=== PATIENT | male | born 1955 | race Caucasian/White ===

== ENCOUNTER 2016-10-12 16:10 | Emergency (ER) | payer BC, OTHER ==
[2016-10-12 16:37] VITALS: TEMP 97.7
--- NOTE | 2016-10-12 18:13 | EDPHY ---
H & P Time Seen by Provider: 10/12/16 18:13 HPI/ROS: CHIEF COMPLAINT: Lightheaded on standing HISTORY OF PRESENT ILLNESS: This 61-year-old man had at visit to the emergency department in [place] on October 03 for symptoms of lower GI bleed and hematocrit decreasing from 42-37. He was discharged from the ER and presents to the emergency department today feeling increasingly lightheaded on standing, with fatigue blurry vision and generalized weakness. Not associated with actual syncope. No chest pain or shortness of breath. He just feels very very weak and exhausted. REVIEW OF SYSTEMS: Eye: Having some blurry vision with his symptoms. ENT: no sore throat Cardiac: no chest pain or syncope Pulmonary: no cough or SOB Abdomen: no vomiting, diarrhea, abdominal pain. No black or bloody stools. Musculoskeletal: no back pain or neck pain or neck stiffness, but some diffuse myalgias. Skin: no rash Neuro: no headache Constitutional: no fever : no urinary symptoms. No change in color of urine. A comprehensive 10 point review of systems is otherwise negative aside from elements mentioned in the history of present illness. PAST MEDICAL HISTORY: Hydrocortisone for adrenal problem, right total hip arthroplasty August 16, right ACL September 15. Restless leg syndrome, depression on gabapentin and Lexapro. Social history: Nonsmoker, lives mostly in [place]. Has a primary care physician in [place]. General Appearance: Alert and conversant, cooperative. Eyes: No scleral icterus. ENT, Mouth: Normal mucous membranes. Respiratory: Normal respiratory effort, breath sounds equal, lungs are clear to auscultation. Cardiovascular: Regular rate and rhythm. Gastrointestinal: Abdomen is soft and non tender. Rectal exam shows dark stool sent to lab for Hemoccult. Neurological: Alert and oriented x3. Normally conversant. Face symmetric, normal movement and sensation in all extremities. Not tremulous. Skin: Warm and dry, no rashes. Musculoskeletal: No peripheral edema and no joint swelling. Psychiatric: Not agitated. Emergency Department course/MDM: EKG, labs to include CBC and troponin and D-dimer. CT angio chest ordered because of weakness and lightheadedness and elevated D- dimer. Results discussed with the patient. Differential is broad but I do not think at this point there is evidence he is an acute emergent medical condition. Possible viral syndrome. Possible moderately volume depleted. Smoking Status: Never smoked Constitutional: Initial Vital Signs Temperature (C) 36.5 C 10/12/16 16:34 Heart Rate 77 10/12/16 16:34 Respiratory Rate 14 10/12/16 16:34 Blood Pressure 156/85 H 10/12/16 16:34 O2 Sat (%) 94 10/12/16 16:34 O2 Delivery Mode Room Air Allergies/Adverse Reactions: versed Allergy (Uncoded 10/12/16 16:31) Medical Decision Making - Diagnostics EKG Interpretation: 12-lead EKG interpreted by me; official reading is in trace master. My interpretation is sinus rhythm, rate 69, normal intervals and no ischemic changes. Imaging: Negative CT angiography of the chest per Dr. Jiménez at 8:50 p.m.. Differential Diagnosis: Differential considered including but not limited to pulmonary embolism, anemia , recurrent GI bleed, metabolic, acute coronary syndrome, dysrhythmia. - Data Points Laboratory Results: Laboratory Results 10/12/16 18:22 10/12/16 18:22 10/12/16 10/12/16 18:40 18:22 WBC 7.47 10^3/uL (3.80-9.50) RBC 4.30 L 10^6/uL (4.40-6.38) Hgb 12.6 L g/dL (13.7-17.5) Hct 37.9 L % (40.0-51.0) MCV 88.1 fL (81.5-99.8) MCH 29.3 pg (27.9-34.1) MCHC 33.2 g/dL (32.4-36.7) RDW 14.0 % (11.5-15.2) Plt Count 400 10^3/uL (150-400) MPV 8.9 fL (8.7-11.7) Neut % (Auto) 69.1 % (39.3-74.2) Lymph % (Auto) 21.0 % (15.0-45.0) [place] % (Auto) 7.0 % (4.5-13.0) Eos % (Auto) 1.7 % (0.6-7.6) Baso % (Auto) 0.4 % (0.3-1.7) Nucleat RBC Rel Count 0.0 % (0.0-0.2) Absolute Neuts (auto) 5.16 10^3/uL (1.70-6.50) Absolute Lymphs (auto) 1.57 10^3/uL (1.00-3.00) Absolute Monos (auto) 0.52 10^3/uL (0.30-0.80) Absolute Eos (auto) 0.13 10^3/uL (0.03-0.40) Absolute Basos (auto) 0.03 10^3/uL (0.02-0.10) Absolute Nucleated RBC 0.00 10^3/uL (0-0.01) Immature Gran % 0.8 % (0.0-1.1) Immature Gran # 0.06 10^3/uL (0.00-0.10) D-Dimer 2.63 H ug/mLFEU (0.00-0.50) Sodium 141 mEq/L (134-144) Potassium 4.2 mEq/L (3.5-5.2) Chloride 105 mEq/L (97-110) Carbon Dioxide 26 mEq/l (22-31) Anion Gap 10 mEq/L (8-16) BUN 15 mg/dL (7-23) Creatinine 0.9 mg/dL (0.7-1.3) Estimated GFR > 60 Glucose 97 mg/dL (70-100) Calcium 8.7 mg/dL (8.5-10.4) Troponin I < 0.012 ng/mL (0-0.034) Stool Occult Bld Scrn NEGATIVE (NEGATIVE) Departure - Departure Disposition: Home, Routine, Self-Care Clinical Impression: Lightheaded Condition: Good Instructions: Near Syncope (ED), Lightheadedness (ED) Additional Instructions: You have a nodule on your lung on CT scan. It (the CT) needs to be repeated in 6 months to evaluate for the possibility of cancer. Referrals: IN STATE,. [Primary Care Provider] - As per Instructions (Dr. Storm your PCP in [place])
--- NOTE | 2016-10-12 18:22 | CPEKG ---
Heart Rate: 69 RR Interval: 870 P-R Interval: 168 QRSD Interval: 88 QT Interval: 420 QTC Interval: 450 P [place]: 31 QRS [place]: -4 T Wave [place]: 41 EKG Severity - NORMAL ECG - EKG Impression: SINUS RHYTHM Electronically Signed By: Ulises Rock 12-Oct-2016 18:40:33
[2016-10-12 18:29] VITALS: RESP 16
[2016-10-12 18:39] LABS: % IMMATURE GRANULYOCYTES 0.8 % (0.0-1.1); ABSOLUTE IMMATURE GRANULOCYTES 0.06 10^3/uL (0.00-0.10); ADD DIFF? NO; ADD MORPH? NO; ADD SCAN? NO; ATYPICAL LYMPHOCYTE FLAG 10 (0-99); FRAGMENT RBC FLAG 0 (0-99); HEMATOCRIT 37.9 % (40.0-51.0); HEMOGLOBIN 12.6 g/dL (13.7-17.5); LEFT SHIFT FLG 0 (0-99); LIPEMIA HEMOLYSIS FLAG 80 (0-99); MEAN CELL HEMOGLOBIN 29.3 pg (27.9-34.1); MEAN CELL HEMOGLOBIN CONCENTR. 33.2 g/dL (32.4-36.7); MEAN CELL VOLUME 88.1 fL (81.5-99.8); MEAN PLATELET VOLUME 8.9 fL (8.7-11.7); PLATELET CLUMPS FLAG 20 (0-99); PLATELET COUNT 400 10^3/uL (150-400)
[2016-10-12 18:47] LABS: ANION GAP 10 mEq/L (8-16); CALCIUM 8.7 mg/dL (8.5-10.4); CARBON DIOXIDE 26 mEq/l (22-31); CHLORIDE 105 mEq/L (97-110); CREATININE 0.9 mg/dL (0.7-1.3); GLOMERULAR FILTRATION RATE > 60; GLUCOSE 97 mg/dL (70-100); POTASSIUM 4.2 mEq/L (3.5-5.2); SODIUM 141 mEq/L (134-144)
[2016-10-12 18:59] LABS: TROPONIN I < 0.012 ng/mL (0-0.034)
[2016-10-12] MEDS ORDERED: IOPAMIDOL (ISOVUE 370) 100 ML BTL IV ONE (19:44)
--- NOTE | 2016-10-12 21:10 | CT ---
CT Angiogram Chest, With IV ContrastS HISTORY: Elevated D-dimer. Syncopal episode. TECHNIQUE: 1.25-mm helical images were obtained of the chest from the lung apices through the lung b ases. This was done postintravenous contrast, with 80 mL of Isovue-370 contrast. Multiplanar and 3D evaluation was performed at the workstation. Radiation dose reduction technique was utilized. FINDINGS Pulmonary Angiogram: The pulmonary arteries are well opacified and demonstrate no evidence for a savanna ling defect to indicate a pulmonary embolus. No evidence for an aortic aneurysm or dissection. CHEST: The heart size is within normal limits. No evidence for a pericardial effusion. No signific ant mediastinal or hilar lymphadenopathy. The lungs are clear of acute consolidation. No evidence f or a pleural effusion or pneumothorax. Minimal scarring is seen in the right middle lobe and lingula . A 6-mm pulmonary nodule is seen laterally in the right middle lobe, measuring 6.4 mm. Another sma ller 3.4-mm pulmonary nodule is seen along the minor fissure. Degenerative change is seen in the tho racic spine. IMPRESSION: No evidence for a pulmonary embolus. A 6-mm pulmonary nodule right middle lobe. Recommendation: Recommend follow-up CT in 6-12 months. Results discussed with Dr. Ulises Rock.
[2016-10-12 21:38] VITALS: BP 125/88; PULSE 75; O2SAT 92
== END 2016-10-12 21:37 | disposition home or self-care (01) ==
DX: R42 Dizziness and giddiness (principal)
CPT/HCPCS: Q9967

== ENCOUNTER 2019-01-02 05:18 | Observation (INO) | payer OTHER ==
--- NOTE | 2019-01-01 15:55 | GHP ---
[f rep st] PREOP HISTORY AND PHYSICAL DATE OF ADMISSION: 01/02/2019 HISTORY OF PRESENT ILLNESS: The patient is a 63-year-old man who presents with chronic right knee pa in. He has a history of a torn ACL and a reconstruction as well as a quadriceps tear and repair and he has had medial and lateral meniscal work. He has swelling, stiffness, pain on weightbearing, prob lems with his gait and limitations of his activities including activities of daily living, especially bad when walking down stairs. He has been using narcotics to control his pain. He has had viscosup plementation injections as well as steroid injections. They have not eliminated or significantly dick nged his symptoms. He has tried appropriate exercises. His x-rays show right knee tricompartment os teoarthritis with severe joint space narrowing medially. He has retained hardware, small button on t he lateral side of the femur and a screw and washer in the tibia. A right total knee arthroplasty is planned. PAST MEDICAL HISTORY: Remarkable for restless legs syndrome. He has had a history of a GI bleed. Pratima cabello is intolerant of aspirin and NSAID. He has had bilateral total hips, right ACL, he has had eye pro cedures mainly for retinal problems. ALLERGIES: He has an allergy to Versed causing confusion. He is intolerant of NSAIDs and aspirin. MEDICATIONS: Include gabapentin 600 mg p.o. daily and ropinirole. He also is using hydrocortisone 1 0 mg 4 times a day and albuterol inhaler. SOCIAL HISTORY: He has a history of tobacco use years ago. REVIEW OF SYMPTOMS: Positive for his GI bleed, asthma, and restless legs. PHYSICAL EXAM: GENERAL: The patient is a well-developed, well-nourished male in no apparent distres s. HEAD AND NECK: Normocephalic, atraumatic. CHEST: Clear. CARDIOVASCULAR: Regular rate and rhy thm. ABDOMEN: Soft. NEUROLOGIC: He is alert and oriented x3. EXTREMITIES: Exam of the right kndestiney e shows varus alignment about 4 degrees of flexion contracture. He has very good flexion. He has a mild pivot shift from his old ACL, he has tenderness along the medial joint line and effusion. He mackey s good strong quadriceps function. Neurovascular exam is intact. SKIN: Intact. IMPRESSION: Osteoarthritis, right knee. PLAN: Right total knee arthroplasty. Benefits and risks of surgery have been reviewed with the harman ent. He understands that the risks include infection, damage to blood vessel or nerve, failure or lo osening of components and need for revision, blood clot in the leg or lungs, bleeding and need for tr ansfusion. I have reviewed the rigorous nature of the rehabilitation. We will plan on DVT prophylax is with Lovenox. He has signed his consent form and wishes to proceed. /[id number]/MODL
[2019-01-02] MEDS ORDERED: FAMOTIDINE 20 MG TAB PO ONE (05:52)
[2019-01-02] MEDS ORDERED: ceFAZolin 2 GM/DEXTROSE 100 ML IV ONE (05:52)
[2019-01-02] MEDS ORDERED: DEXAMETHASONE 4 MG/ML VIAL IVP ONE (05:52)
[2019-01-02] MEDS ORDERED: ACETAMINOPHEN 325 MG TAB PO ONE (05:52)
[2019-01-02] MEDS ORDERED: LR 1,000 ML IV ONE (05:54)
[2019-01-02] MEDS ORDERED: POVIDONE-IODINE 20 ML in SODIUM CL IRRIG SOLUTION 500 ML IRR ONE (06:00)
[2019-01-02] MEDS ORDERED: TRANEXAMIC ACID 1,000 MG in NS 100 ML IV ONE (06:00)
[2019-01-02] MEDS ORDERED: ROPIVACAINE 0.2% 80 MG, EPINEPHrine 0.2 MG, KETOROLAC TROMETHAMINE 30 MG in SYRINGE 0 ML IU ONE (06:00)
--- NOTE | 2019-01-02 06:50 | PDANEPAE ---
ANE Past Medical History - Cardiovascular History Hx Hypertension: No Hx Arrhythmias: No Hx Chest Pain: No Hx Coronary Artery / Peripheral Vascular Disease: No Hx CHF / Valvular Disease: No Hx Palpitations: No - Pulmonary History Hx COPD: No Hx Asthma/Reactive Airway Disease: No Hx Recent Upper Respiratory Infection: No Hx Oxygen in Use at Home: No Hx Sleep Apnea: No Sleep Apnea Screening Result - Last Documented: Positive Pulmonary History Comment: EXERCISE INDUCED ASTHMA. POS PRASHANTH - NO CPAP - Neurologic History Hx Cerebrovascular Accident: No Hx Seizures: No Hx Dementia: No Neurologic History Comment: VASOVAGAL REACTION - PASSED OUT FOLLOWING DENTAL SURG - Endocrine History Hx Diabetes: No - Renal History Hx Renal Disorders: No Renal History Comment: ADRENAL CORTISOL DEFICIENCY - Liver History Hx Hepatic Disorders: No - Neurological & Psychiatric Hx Hx Neurological and Psychiatric Disorders: Yes Neurological / Psychiatric History Comment: ANXIETY - Cancer History Hx Cancer: No - Congenital Disorder History Hx Congenital Disorders: No - GI History Hx Gastrointestinal Disorders: No - Other Health History Other Health History: TAKES HYDROCORTISONE FOR ADRENAL DISEASE. FXd RIBS IN PAST - Chronic Pain History Chronic Pain: Yes (RT KNEE) - Surgical History Prior Surgeries: ISMAEL TOTAL HIP. ISMAEL SHOULDERS RTC. RT ACL/MENISCUS REPAIR ANE Review of Systems Review of Systems: - Exercise capacity METS (RN): 6 METS ANE Patient History - Allergies Allergies/Adverse Reactions: versed Allergy (Uncoded 08/08/18 14:30) "MR HERNANDEZ"SYNDROME W/HEADACHE,RASH, & ANGER - Home Medications Home Medications: Escitalopram Oxalate [Lexapro] 20 mg PO DAILY 08/08/18 [Last Taken 01/01/19 08: 00] Gabapentin [Neurontin 300 MG (*)] 600 mg PO HS 08/08/18 [Last Taken 01/01/19] Hydrocortisone [Cortef 10 mg (*)] 10 mg PO QID 08/08/18 [Last Taken 01/01/19] oxyCODONE IR [Oxycodone Ir (*)] 5 mg PO TID 08/08/18 [Last Taken 01/02/19 02:00] rOPINIRole HCL [Requip 5mg (*)] 5 mg PO DAILY18 08/08/18 [Last Taken 01/01/19 17 :00] Albuterol [Proventil Inhaler HFA (*)] 1 - 2 puffs IH Q4H PRN 12/19/18 [Last Taken 01/01/19] rOPINIRole HCL [Requip Xl] 2 mg PO DAILY 12/19/18 [Last Taken 01/02/19 02:00] - NPO status NPO Since - Liquids (Date): 01/02/19 NPO Since - Liquids (Time): 02:00 NPO Since - Solids (Date): 01/01/19 NPO Since - Solids (Time): 20:00 - Smoking Hx Smoking Status: Former smoker - Family Anes Hx Family Hx Anesthesia Complications: NEG ANE Labs/Vital Signs - Vital Signs Blood Pressure: 130/83 Heart Rate: 66 Respiratory Rate: 16 O2 Sat (%): 95 Height: 187.96 cm Weight: 86.183 kg ANE Physical Exam - Airway Neck exam: FROM Mallampati Score: Class 2 Mouth exam: normal dental/mouth exam - Pulmonary Pulmonary: clear to auscultation - Cardiovascular Cardiovascular: regular rate and rhythym - ASA Status ASA Status: II ANE Anesthesia Plan Anesthesia Plan: spinal Regional Anesthesia: single shot NB
[2019-01-02] MEDS ORDERED: PROPOFOL/EMULSION 500 MG/50 ML BOTTLE IV ONE (06:56)
[2019-01-02] MEDS ORDERED: MIDAZOLAM 2 MG/2 ML VIAL IVP ONE ×2 (06:56→07:09)
[2019-01-02] MEDS ORDERED: BUPIVACAINE/DEXTROSE 7.5MG/ML 2 ML SPINAL AMP SP ONE (06:58)
[2019-01-02] MEDS ORDERED: ceFAZolin 1 GM/5 ML SYR ONE (07:05)
--- NOTE | 2019-01-02 07:19 | PDHPUP ---
History & Physical Update H&P update statement: This history and physical update is based on an assessment of the patient which was completed after admission or registration (within 24 hours), but prior to the surgery/procedure. no change H&P update: no change in patient's condition since H&P completed (no change)
[2019-01-02] MEDS ORDERED: GLYCOPYRROLATE 0.2 MG/1 ML VIAL ONE (07:37)
[2019-01-02] MEDS ORDERED: ePHEDrine SULFATE 25 MG/5 ML SYR ONE (07:41)
[2019-01-02] MEDS ORDERED: LIDOCAINE 2% 100 MG/5 ML SYR ONE (08:23)
[2019-01-02] MEDS ORDERED: fentaNYL 100 MCG/2 ML INJ ONE (08:30)
[2019-01-02] MEDS ORDERED: MIDAZOLAM 2 MG/2 ML VIAL ONE (08:33)
[2019-01-02] MEDS ORDERED: oxyCODONE IR 5 MG TAB PO PRN (09:09)
[2019-01-02] MEDS ORDERED: fentaNYL 100 MCG/2 ML INJ IVP PRN (09:09)
[2019-01-02] MEDS ORDERED: HYDROmorphONE/DILAUDID 1 MG/ML INJ IVP PRN (09:09)
[2019-01-02] MEDS ORDERED: LR 500 ML IV PRN (09:09)
[2019-01-02] MEDS ORDERED: ALBUTEROL 3 ML DEYVIAL IH PRN (09:09)
[2019-01-02] MEDS ORDERED: PROMETHAZINE HCL 25 MG/ML INJ IVP PRN ×2 (09:09→09:33)
[2019-01-02] MEDS ORDERED: NALOXONE HCL 0.4 MG/ML INJ IVP PRN (09:09)
[2019-01-02] MEDS ORDERED: ROPIVACAINE HCL 150 MG/30 ML INJ ONE (09:10)
[2019-01-02] MEDS ORDERED: MAGNESIUM HYDROXIDE 30 ML UDCUP PO PRN (09:33)
[2019-01-02] MEDS ORDERED: METOCLOPRAMIDE 10 MG/2 ML VIAL IVP PRN (09:33)
[2019-01-02] MEDS ORDERED: POLYETHYLENE GLYCOL 3350 17 GM PKT PO PRN (09:33)
[2019-01-02] MEDS ORDERED: KETOROLAC 15 MG/1 ML SDV IVP ONE ×2 (09:33→12:45)
[2019-01-02] MEDS ORDERED: PROMETHAZINE HCL 25 MG SUPPR PR PRN (09:33)
[2019-01-02] MEDS ORDERED: diphenhydrAMINE 25 MG CAP PO PRN (09:33)
[2019-01-02] MEDS ORDERED: BISACODYL 10 MG SUPP PR PRN (09:33)
[2019-01-02] MEDS ORDERED: DIPHENOXYLATE/ATROPINE LOMOTIL 1 TAB PO PRN (09:33)
[2019-01-02] MEDS ORDERED: LACTULOSE 20 GM/30 ML UDCUP PO PRN (09:33)
[2019-01-02] MEDS ORDERED: ONDANSETRON DISINTEGRATING 4 MG TAB PO PRN (09:33)
[2019-01-02] MEDS ORDERED: ONDANSETRON 4 MG/2 ML VIAL IVP PRN (09:33)
[2019-01-02] MEDS ORDERED: TEMAZEPAM 15 MG CAP PO PRN (09:33)
[2019-01-02] MEDS ORDERED: LR 1,000 ML IV SCH (10:00)
--- NOTE | 2019-01-02 10:39 | POSTANESTH ---
Post Anesthetic Evaluation Cardiovascular Status: Normal, Stable Respiratory Status: Normal, Stable Level of Consciousness/Mental Status: Can Participate in Eval Pain Control: Adequate, Prn Tx Ordered Nausea/Vomiting Control: Adequate, Prn Tx Ordered Complications Possibly Related to Anesthesia: None Noted
[2019-01-02] MEDS ORDERED: ALBUTEROL 60 PUFFS/8 GM MDI IH PRN (12:12)
[2019-01-02] MEDS ORDERED: HYDROCORTISONE 10 MG TAB PO ONE (12:45)
--- NOTE | 2019-01-02 12:53 | GOP ---
[f rep st] OPERATIVE REPORT DATE OF OPERATION: SURGEON: Jase Hoffmann MD RECONDITIONER: JUANITA Larios LSA ANESTHESIOLOGIST: Dr. Chan PREOPERATIVE DIAGNOSIS: Right knee osteoarthritis. POSTOPERATIVE DIAGNOSIS: Right knee osteoarthritis. PROCEDURE PERFORMED: Right total knee arthroplasty. FINDINGS: SPECIMENS: Include excised bone. ESTIMATED BLOOD LOSS: Minimal. INDICATIONS: The patient is a 63-year-old male who has severe right knee tricompartment osteoarthrit is. He has done appropriate conservative measures. Right total knee is planned. DESCRIPTION OF PROCEDURE: The patient was taken to the operating room, and while seated on the [facility] room table, had placement of a spinal anesthetic by Dr. Chan. He was then placed supine, receive d fairly mild IV sedation, received preoperative antibiotics, Ancef 2 g IV and tranexamic acid. A to urniquet was fit high on the right thigh. The right leg was prepped and draped with chlorhexidine. The limb was elevated, exsanguinated, the tourniquet inflated to 275 mmHg. I used a medial anterior incision. Dissection was carried down through subcutaneous tissue and I use d a medial parapatellar arthrotomy. The patella was inverted. I removed 9 mm of bone and cartilage to accommodate the implant and sized this to a size 38. I drilled peg holes for the implant and tria l reduction with the patellar button, restored the patellar thickness. The knee was flexed and I dri lled a towboat pilot hole in the distal femur using intramedullary device. There was a flexion contracture, so I have made a 5-degree valgus cut with a 2 extra mm cut to accommodate his flexion contracture. I sized the femur to a size 6. I used a cutting guide to make the anterior, posterior, and chamfer cu ts, and the notch cuts for this bi-cruciate stabilized knee, and the size 6 component was a good fit. On the tibia, I used an extramedullary device, dialed in posterior slope, rotation and depth of cut , and made my tibial cut, and sized this to a 5. I dialed in the rotation with trial reductions and completed the tibial prep. All the components were removed and the bone surfaces jet lavaged with an tibiotics solution and then cleaned up. All the components were cemented the femur size 6, the tibia size 5, patella 38 mm, and after trial reductions, a 9 mm articular crosslink poly tray was added. The tourniquet was let down after about an hour and the knee was irrigated with Betadine solution and saline with antibiotics. I infiltrated a joint cocktail. The arthrotomy was closed with interrupte d [id number] sutures of 0 [place], subcutaneous tissue with 3-0 Monocryl, and the skin with a running Quill suture that was further dressed with tissue glue, Steri-Strips, 4 x 4 gauze, sterile We bril, a AD stocking and an Noel wrap. Tourniquet was let down after about an hour. COMPLICATIONS: There were no complications. DRAINS: No drain. COUNTS: All counts are correct. The patient was taken in stable condition to recovery. SUMMARY OF COMPONENTS: This is a [employer] knee, bi-cruciate stabilized, all componen ts cemented. The femur is Oxinium and the articular tray is cross-linked polyethylene. The femur si ze 6, the tibia size 5, the patella 38 mm, and the articular tray 9 mm thick. My material assistant was a medical necessity for leg positioning, soft tissue retraction. /[id number]/MODL
[2019-01-02] MEDS: ceFAZolin 2 GM/DEXTROSE 100 ML IV SCH ×2 (14:20→21:09)
[2019-01-02] MEDS: oxyCODONE IR 5 MG TAB PO PRN ×3 (14:38→21:12)
[2019-01-02] MEDS: ACETAMINOPHEN 325 MG TAB PO SCH ×2 (14:38→21:09)
--- NOTE | 2019-01-02 14:47 | SOAPPROG ---
SOAP Progress Note Assessment/Plan: Assessment: s/p right TKA - procedure earlier this morning Plan: Begin discharge planning - patient lives in [place], but has rented a home in the [place] area for approximately the next month so he can follow up with Dr. Hoffmann and attend PT. He is hoping to go home. He will have someone staying with him for the first couple nights and he also states Dr. Hoffmann had mentioned having home health/home PT come to him initially. He does not have outpatient PT scheduled yet. I informed Dr. Hoffmann that the patient would like to go to [facility] for PT. Continue VTE prophylaxis - Lovenox 40 mg SC once daily, AD potts, SCDs - history of GI bleed Continue pain management Continue PT efforts Post-operative x-rays reveal stable anatomic alignment, no fracture or lucency Subjective: Patient states he is feeling good at this time, pain is increasing a bit but overall his oral pain medication is working. He reports living in a rather secluded area in [place] and has rented a house in the [place] area for the next month to help make follow up appointments with Dr. Hoffmann and PT more convenient. He reports having someone staying with him for the first couple nights when he gets home. Patient also reports that Dr. Hoffmann had mentioned having some type of home health come to his home until he starts outpatient PT. Patient does not believe that he has outpatient PT arranged yet. He would like for me to contact Dr. Hoffmann to see if he can get a PT script sent to [facility] for outpatient PT. Patient denies shortness of breath, chest pain, fever, chills, nausea, vomiting. No major complaints or concerns at this time. Objective: Vital Signs Temp Pulse Resp BP Pulse Ox 36.3 C 72 14 139/70 H 93 01/02/19 14:31 01/02/19 14:31 01/02/19 14:31 01/02/19 14:31 01/02/19 14:31 01/01/19 01/02/19 01/03/19 05:59 05:59 05:59 Intake Total 680 Output Total 10 Balance 670 Patient resting comfortably in bed, no acute distress. RLE: Surgical wound dressings are clean, dry and intact. Lower leg compartments are soft and nontender. He can actively DF and PF his right foot and great toe against resistance. Grossly NVI distally. ICD10 Worksheet Patient Problems: Problems Problem Status Onset Unilateral primary osteoarthritis, right knee Acute
[2019-01-02] MEDS: HYDROCORTISONE 10 MG TAB PO SCH ×2 (17:53→21:12)
[2019-01-02] MEDS: GABAPENTIN 300 MG CAP PO SCH (21:11)
[2019-01-02] MEDS: FAMOTIDINE 20 MG TAB PO SCH (21:11)
[2019-01-02] MEDS: SENNOSIDES/DOCUSATE SODIUM TAB PO SCH (21:13)
[2019-01-02] MEDS: Ropinirole Hcl [Requip Xl] 2 MG PO SCH (21:14)
[2019-01-03] MEDS: oxyCODONE IR 5 MG TAB PO PRN ×7 (00:42→22:42)
[2019-01-03] MEDS: GABAPENTIN 300 MG CAP PO SCH ×2 (00:44→21:58)
[2019-01-03] MEDS: ACETAMINOPHEN 325 MG TAB PO SCH ×4 (03:48→21:57)
[2019-01-03] MEDS: Ropinirole Hcl [Requip Xl] 2 MG PO SCH ×2 (03:49→23:33)
[2019-01-03] MEDS: HYDROCORTISONE 10 MG TAB PO SCH ×4 (06:17→21:57)
[2019-01-03] MEDS: SENNOSIDES/DOCUSATE SODIUM TAB PO SCH ×2 (07:56→23:33)
[2019-01-03] MEDS: ESCITALOPRAM OXALATE 10 MG TAB PO SCH (07:57)
[2019-01-03] MEDS: FAMOTIDINE 20 MG TAB PO SCH ×2 (07:57→23:32)
--- NOTE | 2019-01-03 08:21 | SOAPPROG ---
SOAP Progress Note Assessment/Plan: Assessment: POD 1 right TKA Anemia - level is expected initially post-operatively. Asymptomatic. Continue to monitor. Plan: Continue discharge planning - Patient is doing better than expected, but he would prefer to stay one more night since the home care he has arranged will not be there until tomorrow. He lives in a remote area of [place] and is staying in [place] for about a month during his initial recovery process. He has someone who will be staying with him at the apartment he rented. Patient will then go back to [place] once he completes outpatient PT and has his follow up visits with Dr. Hoffmann. Continue VTE prophylaxis - Lovenox 40 mg SC until POD 10, AD potts. Lovenox script filled at [facility]. Continue pain management - he already has scripts for oxycodone and Celebrex Change wound dressings Subjective: Patient states he is feeling very good this morning and is doing better than he expected. His right knee pain is tolerable. He would like to go home tomorrow because he has arranged home care to stay with him for a couple nights and they will not be coming until tomorrow. Patient has been able to void spontaneously. Patient reports having a prescription already for oxycodone and does not need another one, his goal is wean off the narcotics. Patient cannot take aspirin secondary to a previous GI bleed. He is tolerating Celebrex and already has a script for this at home. He denies shortness of breath, chest pain, fever, chills. Objective: Vital Signs Temp Pulse Resp BP Pulse Ox 36.6 C 61 18 123/80 H 93 01/03/19 08:00 01/03/19 08:00 01/03/19 08:00 01/03/19 08:00 01/03/19 08:00 Laboratory Results 01/03/19 04:15 01/02/19 01/03/19 01/04/19 05:59 05:59 05:59 Intake Total 3230 Output Total 1410 Balance 1820 Patient resting comfortably in bed, no acute distress. RLE: Surgical wound dressings are clean and intact. There is a small amount of blood on the dressing. Lower leg compartments are soft and nontender. He can actively DF and PF his foot and great toe. Grossly NVI distally. ICD10 Worksheet Patient Problems: Problems Problem Status Onset Unilateral primary osteoarthritis, right knee Acute
[2019-01-03] MEDS ORDERED: ENOXAPARIN 40 MG/0.4 ML SYR SC SCH (09:00)
--- NOTE | 2019-01-03 13:39 | ASMTCMCOM ---
CM Note CM Note Notes: Pt had planned knee surgery, resides with spouse in remote part [facility]. Pt will stay in [place] for two months after d/c. PT rec home/outpatient. Pt was pre-arranged with [facility] by MD office which is satisfactory to pt. Emily with [facility] to meet with pt today. Pt will schedule outpatient PT in the [place] area. Pt likely d/c tomorrow. D/c plan of care: D/c locally with [facility] Date Signed: 01/03/2019 01:38 PM Electronically Signed By:BENY Morales
[2019-01-03] MEDS ORDERED: HYDROGEN PEROXIDE 236 ML BOTTLE TP ONE (16:15)
--- NOTE | 2019-01-03 16:34 | SOAPPROG ---
SOAP Progress Note Assessment/Plan: Assessment: POD 1 right TKA Anemia - level is expected initially post-operatively. Asymptomatic. Continue to monitor. Plan: Continue discharge planning - Patient is doing better than expected, but he would prefer to stay one more night since the home care he has arranged will not be there until tomorrow. He lives in a remote area of [place] and is staying in [place] for about a month during his initial recovery process. He has someone who will be staying with him at the apartment he rented. Patient will then go back to [place] once he completes outpatient PT and has his follow up visits with Dr. Hoffmann. Continue VTE prophylaxis - hold Lovenox 40 mg SC at this time secondary to bleeding at the incision site. Dr. Hoffmann may consider a low dose aspirin for VTE ppx. Continue SCDs, AD potts. Continue pain management - he already has scripts for oxycodone and Celebrex Change wound dressings tomorrow morning Patient restarted on Ancef 1 gm IV every 8 hours 01/03/19 16:29 01/03/19 16:35 Subjective: Patient had his bulky dressing wound dressing changed around 12:40-13:00. There has been increased bleeding at the incision site. Dr. Hoffmann was called and he came to see the patient and address the bleeding. Patient states he has been doing well otherwise. Objective: Vital Signs Temp Pulse Resp BP Pulse Ox 37.1 C 104 H 17 141/75 H 94 01/03/19 15:44 01/03/19 15:44 01/03/19 15:44 01/03/19 15:44 01/03/19 15:44 Laboratory Results 01/03/19 04:15 01/02/19 01/03/19 01/04/19 05:59 05:59 05:59 Intake Total 3230 Output Total 1410 500 Balance 1820 -500 Patient resting comfortably in bed, no acute distress. The superior aspect of the Mepilex dressing is saturated with blood. There is a mild-moderate edema/ effusion, more likely blood within the subcutaneous tissue than within the joint. Some blood was able to be expelled from the incision. Pressure was applied to help stop the mild bleeding. The skin was cleaned with hydrogen peroxide. New absorptive dressing was applied and MAURO wrap. ICD10 Worksheet Patient Problems: Problems Problem Status Onset Unilateral primary osteoarthritis, right knee Acute
[2019-01-04] MEDS: oxyCODONE IR 5 MG TAB PO PRN ×4 (01:44→13:13)
[2019-01-04] MEDS: Ropinirole Hcl [Requip Xl] 2 MG PO SCH (01:47)
[2019-01-04] MEDS: ACETAMINOPHEN 325 MG TAB PO SCH ×2 (04:22→09:22)
[2019-01-04] MEDS: HYDROCORTISONE 10 MG TAB PO SCH ×2 (06:05→13:13)
--- NOTE | 2019-01-04 07:33 | SOAPPROG ---
SOAP Progress Note Assessment/Plan: Assessment: -POD 2 right TKA -Anemia - level is expected initially post-operatively. Asymptomatic. Continue to monitor. Plan: -Continue discharge planning - Patient is doing better, reports he feels well enough to go home today. He [place] in [place] area of [place] and is staying in [place] for about a month during his initial recovery process. He has someone who will be staying with him at the apartment he rented. Patient will then go back to [place] once he completes outpatient PT and has his follow up visits with Dr. Hoffmann. -Continue VTE prophylaxis - discontinue Lovenox [address] Hoffmann will have the patient start EC aspirin 81 mg once per day for VTE ppx starting tomorrow. Continue SCDs, AD potts. -Continue pain management - he already has scripts for oxycodone and Celebrex -Continue PT efforts - patient is to do short walks, no vigorous ROM -Change wound dressings prior to discharge this afternoon and he was instructed to follow up with Nirmal Henning PA-C within 5-7 days at their office for a wound check/dressing change. -Patient on Ancef 1 gm IV every 8 hours Subjective: Patient reports that he is feeling better than he did yesterday afternoon. Reports the knee feels less swollen and less painful. Reports currently he feels well enough to go home later this afternoon. He has a friend that would be able to pick him up around 3:00 pm. He denies shortness of breath, chest pain , fever, chills, nausea, vomiting. Objective: Vital Signs Temp Pulse Resp BP Pulse Ox 37.2 C 62 16 119/79 92 01/04/19 00:00 01/04/19 00:00 01/04/19 00:00 01/04/19 00:00 01/04/19 00:00 Laboratory Results 01/04/19 04:21 01/03/19 01/04/19 01/05/19 05:59 05:59 05:59 Intake Total 3230 200 Output Total 1410 1775 Balance 1820 -1575 Patient resting comfortably in bed, no acute distress. RLE: Dr. Hoffmann applied new absorptive dressings, there was a small amount of blood present on the dressings that were put on yesterday afternoon. Lower leg compartments are soft and nontender. He can actively DF and PF his right foot and great toe against resistance. Grossly NVI distally. ICD10 Worksheet Patient Problems: Problems Problem Status Onset Unilateral primary osteoarthritis, right knee Acute
[2019-01-04 07:44] VITALS: BP 120/74
[2019-01-04] MEDS: FAMOTIDINE 20 MG TAB PO SCH (08:36)
[2019-01-04] MEDS: SENNOSIDES/DOCUSATE SODIUM TAB PO SCH (08:36)
[2019-01-04] MEDS: ESCITALOPRAM OXALATE 10 MG TAB PO SCH (08:36)
--- NOTE | 2019-01-04 09:36 | PDIAF ---
- Diagnosis Diagnosis: Right knee osteoarthritis Code Status: Full Code - Medication Management Discharge Medications: electronically signed and located in the Home Medication List. - Orders Services needed: Home Care, Physical Therapy Home Care Face to Face: I certify that this patient was under my care and that I had the required [id number] encounter meeting the encounter requirements on the discharge day. My findings support the fact that the patient is homebound as defined in Home Care Face to Face Continued: CMS Chapter 7 Medicare Benefits Manual 30.1.1 , The condition of the patient is such that there exists a normal inability to leave home and consequently, leaving home would require a considerable and taxing effort. Diet Recommendation: no restrictions on diet Diet Texture: Regular Texture Diet Additional Instructions: TOTAL JOINT ARTHROPLASTY DISCHARGE INSTRUCTIONS 1. Your surgeon follows the [facility] protocol for reducing your risk of DVT (blood clots) following surgery. Medication will be ordered to prevent blood clots. A sudden increase in calf pain and/or swelling could indicate a blood clot in your leg. If this occurs, please call your surgeon or his/her chemist assistant. An ultrasound of the leg may be necessary to diagnose a blood clot. If you have conditions that make you a higher risk for blood clots, your surgeon may use more aggressive ways to prevent them. Notify your surgeon if you think you are a high risk for blood clots. 2. Wear your white surgical stockings (AD hose) for 2 weeks. This decreases your swelling and may help prevent blood clots. It is ok to remove AD hose at night time to give your legs a break. You will continue to take one coated baby aspirin (81 mg) per day until 3 weeks post-operatively. 3. Swelling and bruising in the surgical leg is common. If you feel that it is excessive, please notify your surgeon. 4. Elevate your surgical leg with the ankle above the hip several times every day. Please keep the leg straight when you elevate by putting pillows under your foot. Do not put pillows under your knee. This will make being able to fully straighten more difficult. This is uncomfortable, but try to do it as much as possible. 5. For total knee replacements use compressive wrap on your knee for 3-5 days after surgery, then you can discontinue it. 6. Use a walker or crutches for 1-2 weeks. Progress your weight-bearing as tolerated. You may start to use a cane when you feel stable and safe. 7. You will receive physical therapy instructions in the hospital. Continue those exercises at home. There are additional exercises in the total joint booklet you were given before surgery. Outpatient physical therapy will begin 7- 10 days after surgery. Please schedule this in advance. 8. Use ice on your knee at least 3-5 times every day for 30 minutes. This helps reduce pain and swelling. Also use it at night before falling asleep. 9. Leave your surgical dressing in place. You are to call and make an appointment to see Nirmal Henning PA-C, within the next 5-7 days for a wound check/dressing change. Until then you are to keep the wound dressings clean, dry and in place. 10. Due to narcotics, decreased activity and altered diet, most patients experience constipation after surgery. Use [id number] stool softeners while you are on narcotics. 11. You may drive a car when you are comfortable bearing weight, have good muscular control of your leg and are off narcotics. This usually occurs 2-4 weeks after surgery, depending on which leg was operated on. 12. If there are questions not addressed here, please refer the [facility] book given for more information. If you still have questions, please contact your surgeon s office. 13. If you have a life-threatening emergency, please call 911 and go to the emergency room immediately. For non-life threatening emergencies, please call your physicians office for advice before going to the emergency room. - Follow Up Care Current Providers and Referrals: RHONDA JANG [Other] Jase Hoffmann MD [Medical Doctor] - follow up in 2 weeks Juanjose Henning PAC [Physician Police Guard] - (Please follow up with Nirmal Henning PA-C within next 5-7 days for a wound check/dressing change.)
--- NOTE | 2019-01-04 10:18 | PDDCSUM ---
Discharge Summary Discharge Summary: ADMISSION DIAGNOSIS: Right knee severe degenerative arthritis DISCHARGE DIAGNOSIS: Right knee severe degenerative arthritis OPERATION PERFORMED: January 02, 2019, right total knee arthroplasty POSTOPERATIVE COMPLICATIONS: None CONDITION ON DISCHARGE: Improved BRIEF HISTORY: The patient is a 63 year old male who presented to Dr. Ibanez office for chronic right knee pain. He has a history of right ACL reconstruction as well as right quadriceps tendon repair and medial and lateral meniscal surgeries. He had tried various conservative measures including cortisone and viscosupplementation injections, home exercises, pain medication and has not had significant relief or improvement. He wished to proceed with a right total knee arthroplasty. DESCRIPTION OF HOSPITAL COURSE: The patient was admitted to the hospital on the morning of surgery. The patient underwent a right total knee arthroplasty. Postoperatively, patient was treated with multimodal VTE prophylaxis, including Lovenox 40 mg SC once daily, SCDs and AD hose. He has a history of GI bleed. On the evening of POD 1 there was some mild bleeding from the incision. Lovenox was discontinued. POD 2 he did not receive medication for VTE prophylaxis and on POD 3 he was restarted on EC aspirin 81 mg once per day and he will take this until 3 weeks post-operative. Patient was seen by PT and made good progress with ambulation and stairs. On the second post-operative day his H&H was 12.6/38.5. Patient was able to void spontaneously. At the time of discharge , patient was afebrile and had stable vital signs. New absorptive dressings were applied prior to discharge. Patient is walking with a walker. Post- operative x-rays revealed stable anatomic alignment, there was no fractures or lucency. DISPOSITION: The patient is discharged home with home health and will have outpatient PT in the coming week. Patient may progress to full weightbearing on the right lower extremity as tolerated. AD stockings for 2 weeks. He will continue EC aspirin 81 mg once daily until 3 weeks post-operative. Patient already has prescriptions for Celebrex, oxycodone for pain control. Patient was encouraged to use Tylenol and Celebrex for pain and for break through pain oxycodone. The patient will be seen by Dr. Ibanez office in about 2 weeks. He is to see Nirmal Henning PA-C within 5-7 days for wound check/dressing change. If there are any problems, patient is to call Dr. Ibanez office.
--- NOTE | 2019-01-04 10:31 | ASMTLACE ---
HEROE Length of stay for Answers: 3 days current admission Acuity / Level of Answers: No Care: Did the patient have an inpatient admission? Comorbidities - select Answers: Opioid dependence all that apply / Chronic pain # of Emergency department Answers: 0 visits in the last 6 months Social determinants Answers: Mental health diagnosis (anxiety, depression, pers onality disorders, etc.) Score: 10 Date Signed: 01/04/2019 10:30 AM Electronically Signed By:BENY Morales
--- NOTE | 2019-01-04 10:34 | ASMTCMCOM ---
CM Note CM Note Notes: Pt medically stable for d/c locally with [facility], TS to work with MD office on if pt to have mobile therapy or HHC. Date Signed: 01/04/2019 10:33 AM Electronically Signed By:BENY Morales
[2019-01-04] MEDS ORDERED: HYDROGEN PEROXIDE 236 ML BOTTLE TP ONE (14:30)
[2019-01-05] MEDS ORDERED: ASPIRIN EC 81 MG TAB PO SCH (09:00)
== END 2019-01-04 15:54 | disposition home health service (06) ==
LOC: F3N 05:18
PROVIDERS: ADMIT Orthopaedic Surgery; ATTEND Orthopaedic Surgery
PROC: 0SRC069 Replacement of Right Knee Joint with Oxidized Zirconium on Polyethylene Synthetic Substitute, Cemented, Open Approach (ICD-10-PCS; principal; 2019-01-02 07:15)
DX: M17.11 Unilateral primary osteoarthritis, right knee (principal); D50.0 Iron deficiency anemia secondary to blood loss (chronic); G25.81 Restless legs syndrome; Z96.643 Presence of artificial hip joint, bilateral
CPT/HCPCS: 27447; 73560; 88311; 97110; 97116; 97161; 97165; 97530; C1713; C1776; J0171; J0690; J1100; J1650; J1885; J2001; J2250; J2270; J2704; J2795; J3010